=== PATIENT | male | born 1960 | race Two or more races ===

== ENCOUNTER 2019-12-08 08:44 | Emergency (ER) | payer SELFPAY ==
[~2019-12-08] VITALS: Ht 167.6 cm; Wt 41.7 kg
[2019-12-08] MEDS ORDERED: SODIUM CHLORIDE 0.9% 1,000 ML IV ONE (09:30)
[2019-12-08 09:32] LABS: Basophils # (auto) 0 10 ^3/uL (0-0.2); Eosinophils # (auto) 0 10 ^3/uL (0-0.8); Hemoglobin 9.5 g/dL (13.5-17.5); Lymphocytes # (auto) 0.5 10 ^3/uL (0.4-5.4); Mean Corpuscular Hemoglobin 27.1 pg (28.0-32.0); Monocytes # (auto) 0.6 10 ^3/uL (0-1.3); Neutrophils # (auto) 6.9 10 ^3/uL (1.6-8.6); Neutrophils % (auto) 85.5 % (37.0-80.0); White Blood Cell 8.1 10^3/uL (4.4-10.8)
[2019-12-08 09:34] LABS: Basophils % (auto) 0.5 % (0.0-2.0); Eosinophils % (auto) 0.6 % (0.0-7.0); Hematocrit 29.9 % (41.0-53.0); Lymphocytes % (auto) 6.6 % (10.0-50.0); Mean Corpuscular Hgb Conc. 31.8 g/dL (32.0-36.0); Mean Corpuscular Volume 85.4 fL (80.0-100.0); Monocytes % (auto) 6.8 % (0.0-12.0); Platelet Count (auto) 450 10^3/uL (140-450); Red Cell Distribution Width 20.8 % (11.8-14.3)
[2019-12-08 09:48] LABS: Alanine Aminotransferase 18 U/L (16-61); Albumin 3.1 g/dL (3.4-5.0); Anion Gap 9 (5-15); Aspartate Aminotransferase 22 U/L (15-37); BUN/Creatinine Ratio 28.1; Blood Urea Nitrogen 25 mg/dL (7-18); Calcium 8.2 mg/dL (8.5-10.1); Carbon Dioxide 24 mmol/L (21-32); Chloride 103 mmol/L (98-107); GFR African American 113 mL/min; GFR Non-African American 94 mL/min; Glucose 124 mg/dL (74-106); Magnesium 2.2 mg/dL (1.6-2.6); Sodium 136 mmol/L (136-145)
[2019-12-08 09:54] LABS: Alkaline Phosphatase 96 U/L (45-117); Bilirubin, Total 0.3 mg/dL (0.2-1.0)
[2019-12-08 10:49] LABS: Urine Bacteria NONE SEEN /hpf (None Seen); Urine Blood Negative /uL (Negative); Urine Hyaline Cast FEW /lpf (0 - 2); Urine Mucus FEW (None Seen); Urine Specific Gravity 1.023 (1.001-1.035); Urine WBC 1 /hpf (0 - 3)
[2019-12-08 11:00] LABS: Alcohol, Urine < 3.0 mg/dL (0-10); Amphetamine Screen, Urine NEGATIVE (NEGATIVE); Barbiturate Scree,Urine NEGATIVE (NEGATIVE); Benzodiazephine Screen, Urine NEGATIVE (NEGATIVE); Cannabinoid Screen, Urine NEGATIVE (NEGATIVE); Cocaine Screen, Urine NEGATIVE (NEGATIVE); Opiate Scree,Urine NEGATIVE (NEGATIVE); Phencyclidine Screen, Urine NEGATIVE (NEGATIVE)
--- NOTE | 2019-12-08 17:00 | NUR ---
Assessment Patient is a 59-year-old male with mental status. Patient states prior to admission he lived with Lalita Ramirez but does not know the address. Patient states Lalita has his personal belongings with her and he does not know her phone number or how to return back home. Patient states he has family in [facility] but the phone number he provided no one answers. Patient is unable to answer if he has health insurance. Patient states he receives SSI of an amount of [id number] but Lalita has access to his money. Patient is unable to be placed at a [facility] due to no [place] ID. Will follow-up and provide intervention as appropriate
[2019-12-09] MEDS ORDERED: guaiFENesin-DM 100/10mg/5ml SYR ONE (02:53)
[2019-12-09] MEDS ORDERED: guaiFENesin-DM 100/10mg/5ml SYR PO PRN (03:00)
[2019-12-09] MEDS ORDERED: LORazepam 2MG/ML-1ML VIAL IM ONE (03:00)
[2019-12-09] MEDS ORDERED: TEMAZEPAM 15 MG CAP PO ONE (03:15)
[2019-12-09] MEDS ORDERED: PROMETHAZINE HCL 25 MG/ML 1ML IV ONE (04:30)
[2019-12-09 07:03] VITALS: BP 116/79
[2019-12-09] MEDS ORDERED: ALBUTEROL SULF 2.5 MG/0.5ML(0.5%) NEB SOLN NEB ONE (09:45)
[2019-12-09] MEDS ORDERED: IPRATROPIUM BROM 0.5 MG/2.5ML INH SOL NEB ONE (09:45)
== END 2019-12-09 11:02 | disposition home or self-care (01) ==
LOC: ER 08:44 → EDBD 08:44 → ER 12:13
DX: D64.9 Anemia, unspecified (principal); E46 Unspecified protein-calorie malnutrition; F20.9 Schizophrenia, unspecified; F17.210 Nicotine dependence, cigarettes, uncomplicated; I48.91 Unspecified atrial fibrillation; Z68.1 Body mass index [BMI] 19.9 or less, adult; Z20.828 Contact with and (suspected) exposure to other viral communicable diseases
CPT/HCPCS: 36415; 71045; 80053; 80307; 81001; 83735; 84484; 85025; 87426; 93005; 94640; 96361; 96372; 96374; 99285; C9803; J2060; J2550; J7030; J7644; U0003